=== PATIENT | female | born 2005 | race Caucasian/White ===

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

== ENCOUNTER 2023-02-20 23:42 | Emergency (ER) | payer OTHER ==
[~2023-02-20] VITALS: Ht 172.7 cm; Wt 100.0 kg
[2023-02-21] MEDS ORDERED: IBUPROFEN 600 MG TAB PO ONE (01:45)
[2023-02-21 02:18] VITALS: BP 106/79
== END 2023-02-21 02:22 | disposition home or self-care (01) ==
LOC: ER 23:42
DX: S80.02XA Contusion of left knee, initial encounter (principal); W01.0XXA Fall on same level from slipping, tripping and stumbling without subsequent striking against object, initial encounter; Y93.89 Activity, other specified; Y92.89 Other specified places as the place of occurrence of the external cause; Y99.8 Other external cause status
CPT/HCPCS: 73562

== ENCOUNTER 2023-11-27 06:04 | Emergency (ER) | payer OTHER ==
[~2023-11-27] VITALS: Ht 170.2 cm; Wt 90.1 kg
[2023-11-27] MEDS ORDERED: AMOX500T3 PO (07:35)
[2023-11-27 08:00] VITALS: RESP 16; O2SAT 98
[2023-11-27 08:04] VITALS: BP 121/72; PULSE 95; RESP 16; TEMP 98.9; O2SAT 98
== END 2023-11-27 08:14 | disposition home or self-care (01) ==
LOC: EDSEX 06:04 → EDBD 06:04 → ER 06:04
DX: T59.811A Toxic effect of smoke, accidental (unintentional), initial encounter (principal); J40 Bronchitis, not specified as acute or chronic; R05.9 Cough, unspecified; Y92.89 Other specified places as the place of occurrence of the external cause
CPT/HCPCS: 71045

== ENCOUNTER 2024-10-28 12:01 | Emergency (ER) | payer OTHER ==
[~2024-10-28] VITALS: Ht 172.7 cm; Wt 114.0 kg
[~2024-10-28 12:01] MED LIST: AMOX500T3 PO
[2024-10-28 13:18] LABS: Urine Bacteria FEW /hpf (None Seen); Urine Blood Negative /uL (Negative); Urine Clarity Turbid (Clear); Urine Color Yellow (Yellow); Urine Mucus FEW (None Seen); Urine Protein, UAD TRACE (Negative); Urine Squamous Epithelial Cell FEW /hpf (<5); Urine Urobilinogen Normal (Negative); Urine WBC 237 /hpf (0 - 5); Urine pH 5.5 (5.0-9.0)
[2024-10-28 13:30] VITALS: BP 125/83; PULSE 123; RESP 16; TEMP 98.4; O2SAT 99
[2024-10-28] MEDS: cefTRIAXone SOD 1,000 MG VL IM ONE (14:08)
[2024-10-28] MEDS ORDERED: NITR-87 PO (14:20)
--- NOTE | 2024-10-28 14:20 | ED.PDOC ---
General HPI Comments Pleasant 18-year-old female with no pertinent MHx that presents with a chief complaint of a possible UTI. Complains of dysuria that started two weeks ago. Patient took [id number] azo and cranberry pills that helped temporarily but reports the burning sensation worsened the last 48 hours. Denies any other complaint at this time. Denies any flank pain, lower back pain, fevers chills nausea vomiting diarrhea vaginal discharge or hematuria Chief Complaint: Urinary Time Seen by MD: 12:59 Primary Care Provider: NONE Reviewed notes: Nurses Notes, Medications, Allergies Allergies: Coded Allergies: NO KNOWN ALLERGIES (Unverified , 10/22/17) Home Meds Active Scripts Amoxicillin Trihydrate (Amoxicillin) 500 Mg Tab, 1 TAB PO TID for 5 Days, #15 TAB Prov:ANIKA TREVINO MD 11/27/23 Information Source: Patient Mode of Arrival: Ambulatory Past Medical History PAST MEDICAL HISTORY: Denies Surgical History: Denies all surgeries INDUSTRIAL MANUFACTURING TECHNICIAN History: No Pertinent INDUSTRIAL MANUFACTURING TECHNICIAN History Family History Family History: Reviewed,noncontributory to illness Social History Smoker: Non-Smoker Alcohol: Denies ETOH Use Drugs: Denies Drug Use Lives In: Home All Other Systems: Reviewed and Negative (per hpi) Physical Exam General Appearance: No Apparent Distress, Normal HEENT: Normal ENT Inspection, Pharynx Normal, TMs Normal Neck: Full Range of Motion, Non-Tender, Normal, Normal Inspection Respiratory: Chest Non-Tender, Lungs Clear, No Accessory Muscle Use, No Respiratory Distress, Normal Breath Sounds Cardiovascular: No Edema, No JVD, No Murmur, No Gallop, Normal Peripheral Pulses, Regular Rate/Rhythm Breast Exam: Deferred Gastrointestinal: No Organomegaly, Non Tender, No Pulsatile Mass, Normal Bowel Sounds, Soft, Other (CVA tenderness neg bilaterally) Genitalia: Deferred Pelvic: Deferred Rectal: Deferred Extremities: No calf tenderness, Normal capillary refill, Normal inspection, Normal range of motion, Non-tender, No pedal edema Musculoskeletal : Apperance: Normal Neurologic: Alert, director of capital giving II-XII nml as Tested, No Motor Deficits, Normal Affect, Normal Mood, No Sensory Deficits Cerebellar Function: Normal Reflexes: Normal Skin: Dry, Normal Color, Warm Lymphatic: No Adenopathy Was a procedure done? Was a procedure done?: No Differential Diagnosis Kidney stone (Female): Other Urinary Problem (Female): UTI, Vaginitis X-Ray, Labs, Meds, VS Vital Signs Date Time Temp Pulse Resp B/P (MAP) Pulse Ox O2 Delivery O2 Flow Rate FiO2 10/28/24 13:30 123 16 99 Room Air 10/28/24 13:30 98.4 123 16 125/83 (97) 99 98.4 10/28/24 12:34 98.4 123 16 125/83 (97) 99 Lab Test 10/28/24 12:30 Range/Units Urine Color Yellow Yellow Urine Clarity Turbid H Clear Urine pH 5.5 5.0-9.0 Urine Specific Mellen 1.020 1.001-1.035 Urine Protein Trace H Negative Urine Ketones Negative Negative Urine Blood Negative Negative /uL Urine Nitrite Negative Negative Urine Bilirubin Negative Negative Urine Urobilinogen Normal Negative mg/dL Urine Leukocyte Esterase 3+ Negative /uL Urine RBC 11 0 - 4 /hpf Urine WBC 237 0 - 5 /hpf Urine Squamous Epithelial Cells Few <5 /hpf Urine Transitional Epithelial Cells Few <2 /hpf Urine Bacteria Few H None Seen /hpf Urine Mucus Few None Seen Urine Glucose Normal Normal mg/dL Urine Test Negative Negative X-Ray, Labs, Meds, VS Comment History and lab findings consistent with UTI Vital signs stable patient stable Patient tolerating p.o. fluids Encouraged parents to increase water intake Practice good personal hygiene. Always wipe from front to back Drink plenty of fluids to help flush bacteria out of the urinary tract Empty bladder completely as soon as you feel the urge Empty bladder after intercourse Prescribed p.o. antibiotics for presentation of symptoms Complete course of antibiotic therapy even if symptoms improve or resolve. There should be no leftover antibiotics as this can lead to antibiotic resistant bacteria and even worse infection. Parents verbalized understanding. Potential side effects discussed with patient including abdominal pain, nausea, diarrhea. Recommended probiotics and return precautions given Persistent diarrhea Dehydration Blood in stool Ill-appearing Time of 1ST Reevaluation: 14:17 Reevaluation 1ST: Improved Patient Education/Counseling: Diagnosis, Treatment Family Education/Counseling: Diagnosis, Treatment Departure 1 Departure Time of Disposition: 14:18 Impression: Primary Impression: UTI (urinary tract infection) Qualified Codes: N30.01 - Acute cystitis with hematuria Disposition: HOME / SELF CARE / HOMELESS Condition: Stable e-Prescriptions Nitrofurantoin Monohydrate Mac (Macrobid) 100 Mg Cap 100 MG PO BID for 5 Days, #10 CAP 0 Refills Prov: CARMINE BAEZ NP 10/28/24 Discharged With: Self Critical Care Note Critical Care Time?: No Stability Stability form required: No Heart Score Heart Score: Heart Score Response (Comments) Value History N/A 0 EKG N/A 0 Age N/A 0 Risk Factors N/A 0 Troponin N/A 0 Total 0 CARMINE BAEZ NP Oct 28, 2024 14:20
== END 2024-10-28 14:24 | disposition home or self-care (01) ==
LOC: ER 12:01
DX: N39.0 Urinary tract infection, site not specified (principal); R30.0 Dysuria
CPT/HCPCS: 81001; 81025; 99283; J0696